=== PATIENT | female | born 1955 | race Caucasian/White ===

== ENCOUNTER 2017-09-04 10:21 | Outpatient (CLI) | payer BC, OTHER ==
--- NOTE | 2017-09-05 12:17 | MMO ---
BILATERAL SCREENING MAMMOGRAM: Comparison: 08-17-16, 15, 14, 07-02-13, 06-11-12, 05-31-11 exams. History: Patient states she is status post left breast biopsy approximately 4 years ago, and reported ly a more remote biopsy of bilateral breasts in 1991. FINDINGS: The breasts are heterogeneously dense. There are calcifications scattered within both breast parenchy ma. These calcifications are felt to be relatively stable. There is an asymmetric density in the outer aspect of the right breast as seen on the CC view. It is difficult to definitely localize an abnormality on the opposite projection but may be in a more retro areolar portion of the breast. Patient does have a history of remote right breast biopsy but this are a appears slightly different in appearance as compared to the more recent exams. IMPRESSION: BIRADS category 0 - incomplete assessment. Further imaging required. In this case, focal spot views o f the right breast. In addition, it would be helpful if there is a surgical scar present, to lizy the scar to correlate with area. Ultrasound is suggested as needed. POS: [facility]
== END 2017-09-04 10:22 | disposition home or self-care (01) ==
LOC: SCSMAMMO 10:21
PROVIDERS: ATTEND Obstetrics & Gynecology
DX: Z12.31 Encounter for screening mammogram for malignant neoplasm of breast (principal)
CPT/HCPCS: 77067

== ENCOUNTER → 2017-09-26 | Outpatient (CLI) | payer BC | LOC: BICMAMMO 10:00 | PROVIDERS: ATTEND Obstetrics & Gynecology | DX: R92.2 Inconclusive mammogram (principal); R92.1 Mammographic calcification found on diagnostic imaging of breast; Z80.49 Family history of malignant neoplasm of other genital organs | CPT/HCPCS: G0206-RT; G0279 ==

== ENCOUNTER 2018-05-23 10:30 | Outpatient (CLI) | payer MEDICARE, BC | END 2018-05-23 10:31 | disposition home or self-care (01) | LOC: BICRAD 10:30 | PROVIDERS: ATTEND Internal Medicine Rheumatology | DX: M79.671 Pain in right foot (principal); M79.672 Pain in left foot; M19.072 Primary osteoarthritis, left ankle and foot ==

== ENCOUNTER 2018-10-17 09:47 | Outpatient (CLI) | payer MEDICARE, BC | END 2018-10-17 09:48 | disposition home or self-care (01) | LOC: BICMAMMO 09:47 | PROVIDERS: ATTEND Internal Medicine | DX: Z12.31 Encounter for screening mammogram for malignant neoplasm of breast (principal); R92.1 Mammographic calcification found on diagnostic imaging of breast; Z85.44 Personal history of malignant neoplasm of other female genital organs | CPT/HCPCS: 77063; 77067 ==

== ENCOUNTER 2018-12-18 10:05 | Outpatient (CLI) | payer MEDICARE, BC ==
--- NOTE | 2018-12-18 11:54 | BD ---
BONE DENSITOMETRY USING DEXA: Date: 12/18/18 HISTORY: Postmenopausal screening for osteoporosis. FINDINGS: Lumbar Spine: BMD (g/cm2) L1 0.837 T-Score: -1.4 Z-Score: 0.2 L2 1.025 T-Score: 0.0 Z-Score: 1.8 L3 1.134 T-Score: 0.5 Z-Score: 2.4 L4 1.032 T-Score: -1.3 Z-Score: 1.7 L1-L4 1.007 T-Score: -0.4 Z-Score: 1.5 Femoral Neck: 0.594 T-Score: -2.3 Z-Score: -0.7 Total Femur: 0.821 T-Score: -1.0 Z-Score: 0.3 The 10 year fracture risk for a major osteoporotic fracture is 21% and for a hip fracture is 2.6%. IMPRESSION: Osteopenia. POS: [facility]
== END 2018-12-18 10:06 | disposition home or self-care (01) ==
LOC: BICMAMMO 10:05
PROVIDERS: ATTEND Internal Medicine Rheumatology
DX: M81.0 Age-related osteoporosis without current pathological fracture (principal); M85.89 Other specified disorders of bone density and structure, multiple sites
CPT/HCPCS: 77080

== ENCOUNTER 2019-10-20 10:27 | Outpatient (CLI) | payer MEDICARE, BC ==
--- NOTE | 2019-10-21 14:39 | MMO ---
Bilateral MAMMO Bilat Screen [facility]. CLINICAL HISTORY: Patient is 64 years old and is seen for screening. The patient has no family history of breast cancer. The patient has a history of left needle biopsy - benign. VIEWS: The views performed were: bilateral craniocaudal with tomosynthesis and bilateral mediolateral oblique with tomosynthesis. FILMS COMPARED: The present examination has been compared to prior imaging studies performed at [facility] on 09/26/2017 and 10/17/2018, and at [facility] on 08/17/2016 and 09/04/2017. This study has been interpreted with the assistance of computer-aided detection. MAMMOGRAM FINDINGS: The breasts are heterogeneously dense, which could obscure a lesion on mammography. There are stable benign appearing calcifications seen in both breasts. There are no suspicious masses, suspicious calcifications, or new areas of architectural distortion. IMPRESSION: THERE IS NO MAMMOGRAPHIC EVIDENCE OF MALIGNANCY. A ROUTINE FOLLOW-UP MAMMOGRAM IN 1 YEAR IS RECOMMENDED. THE RESULTS OF THIS EXAM WERE SENT TO THE PATIENT. ACR BI-RADS Category 2 - Benign finding MAMMOGRAPHY NOTE: 1. A negative mammogram report should not delay a biopsy if a dominant of clinically suspicious mass is present. 2. Approximately 10% to 15% of breast cancers are not detected by mammography. 3. Adenosis and dense breasts may obscure an underlying neoplasm. Reported by: TUYET RAE MD Electonically Signed: [id number]
== END 2019-10-20 10:28 | disposition home or self-care (01) ==
LOC: BICMAMMO 10:27
PROVIDERS: ATTEND Internal Medicine
DX: Z12.31 Encounter for screening mammogram for malignant neoplasm of breast (principal); Z91.89 Other specified personal risk factors, not elsewhere classified
CPT/HCPCS: 77063; 77067

== ENCOUNTER 2020-10-26 11:01 | Outpatient (CLI) | payer MEDICARE, BC ==
--- NOTE | 2020-10-26 11:54 | MMO ---
Bilateral MAMMO Bilat Screen [facility]. CLINICAL HISTORY: Patient is 65 years old and is seen for screening. The patient has no family history of breast cancer. The patient has no personal history of cancer. The patient has a history of left needle biopsy - benign. VIEWS: The views performed were: bilateral craniocaudal with tomosynthesis and bilateral mediolateral oblique with tomosynthesis. FILMS COMPARED: The present examination has been compared to prior imaging studies performed at [facility] on 09/26/2017, 10/17/2018 and 10/20/2019, and at [facility] on 09/04/2017. This study has been interpreted with the assistance of computer-aided detection. MAMMOGRAM FINDINGS: The breasts are heterogeneously dense, which could obscure a lesion on mammography. There are stable calcifications seen in both breasts. There are no suspicious masses, suspicious calcifications, or new areas of architectural distortion. IMPRESSION: THERE IS NO MAMMOGRAPHIC EVIDENCE OF MALIGNANCY. A ROUTINE FOLLOW-UP MAMMOGRAM IN 1 YEAR IS RECOMMENDED. THE RESULTS OF THIS EXAM WERE SENT TO THE PATIENT. ACR BI-RADS Category 2 - Benign finding MAMMOGRAPHY NOTE: 1. A negative mammogram report should not delay a biopsy if a dominant of clinically suspicious mass is present. 2. Approximately 10% to 15% of breast cancers are not detected by mammography. 3. Adenosis and dense breasts may obscure an underlying neoplasm. Reported by: SOPHIA COKER MD Electonically Signed: [id number]
== END 2020-10-26 11:02 | disposition home or self-care (01) ==
LOC: BICMAMMO 11:01
PROVIDERS: ATTEND Internal Medicine
DX: Z12.31 Encounter for screening mammogram for malignant neoplasm of breast (principal); Z91.89 Other specified personal risk factors, not elsewhere classified
CPT/HCPCS: 77063; 77067

== ENCOUNTER 2021-03-08 13:15 | Outpatient (CLI) | payer MEDICARE, BC | END 2021-03-08 13:16 | disposition home or self-care (01) | LOC: BICMAMMO 13:15 | PROVIDERS: ATTEND Internal Medicine Rheumatology | DX: M81.0 Age-related osteoporosis without current pathological fracture (principal); M85.89 Other specified disorders of bone density and structure, multiple sites | CPT/HCPCS: 77080 ==

== ENCOUNTER 2021-05-25 10:51 | Outpatient (CLI) | payer MEDICARE, BC ==
[~2021-05-25 10:51] MED LIST: Iopamidol-370 76% 500 ML 1 ML ONE
== END 2021-05-25 10:52 | disposition home or self-care (01) ==
LOC: BICCT 10:51
PROVIDERS: ATTEND Urology
DX: R31.9 Hematuria, unspecified (principal)
CPT/HCPCS: 74178; 82565; Q9967

== ENCOUNTER 2021-05-30 13:37 | Outpatient (CLI) | payer MEDICARE, BC ==
[2021-05-30 15:53] LABS: Hemoglobin 12.8 g/dL (12.0-15.5); Mean Corpuscular Hemoglobin 33.6 pg (27.0-33.0); Mean Corpuscular Volume 101.8 fl (81.6-98.3); Mean Platelet Volume 10.5 fl (7.4-10.4); Platelet Count 247 10x3/uL (150-450); RBC Distribution Width 15.5 % (11.5-14.5); Red Blood Cell (RBC) Count 3.81 10x6/uL (3.90-5.03); White Blood Cell (WBC) Count 8.5 10x3/uL (3.5-10.5)
[2021-05-30 15:58] LABS: Anion Gap 15 mmol/L (10-20); BUN (Urea Nitrogen) 21 mg/dL (9.8-20.1); Calc. Creatinine Clearance 0 mL/min (70-130); Calcium 10.8 mg/dL (7.8-10.44); Carbon Dioxide 25 mmol/L (23-31); Chloride 105 mmol/L (98-107); Glucose 93 mg/dL (80-115); Potassium 5.4 mmol/L (3.5-5.1); Sodium 140 mmol/L (136-145)
[2021-05-30 16:45] LABS: PTT 25.2 sec (22.0-33.0); Prothrombin Time 10.7 sec (9.5-12.1)
[2021-05-31 08:14] LABS: SARS-CoV-2 PCR by NAA Not Detected (NotDetected)
== END 2021-05-30 13:38 | disposition home or self-care (01) ==
LOC: LABBT 13:37
PROVIDERS: ATTEND Urology
DX: Z01.818 Encounter for other preprocedural examination (principal); N39.0 Urinary tract infection, site not specified; Z20.822 Contact with and (suspected) exposure to COVID-19
CPT/HCPCS: 80048; 85027; 85610; 85730; 93005; U0003; U0005; 93010

== ENCOUNTER 2021-06-02 10:04 | Day surgery (SDC) | payer MEDICARE, BC ==
[2021-06-01 12:58] VITALS: BMI 27.1
[2021-06-02] MEDS ORDERED: ceFAZolin 2 GM/DEX 5% 100 ML BAG ONE (11:32)
[2021-06-02] MEDS ORDERED: Fentanyl 100 MCG/2 ML VIAL ONE ×2 (12:09)
[2021-06-02] MEDS ORDERED: Lidocaine 2% Jelly 5 ML TUBE ONE (12:09)
[2021-06-02] MEDS ORDERED: Lidocaine 1% PF 5 ML VIAL ONE (12:27)
[2021-06-02] MEDS ORDERED: PROPOFOL 200 MG/20 ML VIAL ONE (12:27)
[2021-06-02] MEDS ORDERED: Dexamethasone 20 MG/5 ML VIAL ONE (12:27)
[2021-06-02] MEDS ORDERED: Ondansetron PF 4 MG/2 ML Vial ONE (12:27)
== END 2021-06-02 14:28 | disposition home or self-care (01) ==
LOC: SDC 10:04
PROVIDERS: ATTEND Urology
PROC: 0TJB8ZZ Inspection of Bladder, Via Natural or Artificial Opening Endoscopic (ICD-10-PCS; principal; 2021-06-02)
PROC: 0UJH8ZZ Inspection of Vagina and Cul-de-sac, Via Natural or Artificial Opening Endoscopic (ICD-10-PCS; 2021-06-02)
DX: R82.81 Pyuria (principal); R31.21 Asymptomatic microscopic hematuria; I10 Essential (primary) hypertension; L40.50 Arthropathic psoriasis, unspecified; Z85.44 Personal history of malignant neoplasm of other female genital organs; Z79.899 Other long term (current) drug therapy; Z79.52 Long term (current) use of systemic steroids; Z88.5 Allergy status to narcotic agent; Z91.040 Latex allergy status; Z91.048 Other nonmedicinal substance allergy status; Z90.710 Acquired absence of both cervix and uterus; Z98.84 Bariatric surgery status; Z98.890 Other specified postprocedural states
CPT/HCPCS: J1100; J2405; J2704; J3010

== ENCOUNTER 2021-10-25 10:30 | Outpatient (CLI) | payer MEDICARE, BC | END 2021-10-25 10:31 | disposition home or self-care (01) | LOC: BICRAD 10:30 | PROVIDERS: ATTEND Internal Medicine Rheumatology | DX: M25.551 Pain in right hip (principal); M25.552 Pain in left hip; M16.0 Bilateral primary osteoarthritis of hip | CPT/HCPCS: 73523 ==